=== PATIENT | female | born 1960 | race Caucasian/White ===

== ENCOUNTER → 2021-04-15 | Outpatient (CLI) | payer OTHER ==
[~2021-04-15] MED LIST: ALBU90OI INH; ALBU90OI6 INH; ATOR40TA PO; Augmentin 875-1 EACH PO; ERYT.5TO BOTHEYES; FLOVENT HFA12 GM INH; FLUT.05NI; Flonase 0.05% N16 GM; GUAI120S1 PO; HYDCHL12.5 PO; HYDCHL25 PO; IBUP200 PO; LEVSOD100 PO; LEVSOD112 PO; OMEP20ER PO; OXYACE5T PO; PARO20 PO; RANI150 PO; Sudogest30 MG PO; VOLTAREN ARTHRI20 GM TOP
[2021-04-15 13:02] LABS: BASOPHILS ABSOLUTE AUTO 0.05 K/mm3 (0.00-0.23); BASOPHILS PERCENT AUTO 1 % (0-2); EOSINOPHILS ABSOLUTE AUTO 0.12 K/mm3 (0.00-0.68); EOSINOPHILS PERCENT AUTO 2 % (0-6); Hematocrit 42.4 % (33.0-51.0); Hemoglobin 14.4 g/dL (11.5-16.0); IMMATURE GRAN ABSOLUTE AUTO 0.02 K/mm3 (0.00-0.10); IMMATURE GRAN PERCENT AUTO 0 % (0-1); LYMPHOCYTES ABSOLUTE AUTO 2.24 K/mm3 (0.84-5.20); LYMPHOCYTES PERCENT AUTO 32 % (21-46); MONOCYTES ABSOLUTE AUTO 0.75 K/mm3 (0.16-1.47); MONOCYTES PERCENT AUTO 11 % (4-13); Mean Corpuscular HGB 33.8 pg (26.0-34.0); Mean Corpuscular Volume 100 fL (80-100); NEUTROPHILS ABSOLUTE AUTO 3.76 K/mm3 (1.96-9.15); NEUTROPHILS PERCENT AUTO 54 % (41-73); RDW Coefficient Variation 13.2 % (11.7-14.2); RDW Standard Deviation 48.4 fL (35.1-46.3); Red Blood Cell Count 4.26 M/mm3 (3.80-5.20); White Blood Cell Count 6.94 K/mm3 (4.00-11.30)
[2021-04-15 13:17] LABS: Alanine Aminotransfer (ALT/SGP 38 U/L (12-78); Albumin/Globulin Ratio 1.2 (0.8-1.8); Alk Phos 78 U/L (50-136); Anion Gap 6 mmol/L (6-16); Aspartate Aminotrans (AST/SGOT 28 U/L (12-37); Bilirubin, Total 0.6 mg/dL (0.1-1.0); Blood Urea Nitrogen 12 mg/dL (8-24); Bun/Creatinine Ratio 15.6 (12.0-20.0); CO2, Blood 28 mmol/L (21-32); Calcium, Blood 9.8 mg/dL (8.5-10.1); Chloride, Blood 106 mmol/L (98-108); Creatinine, Blood 0.77 mg/dL (0.40-1.00); Globulin, Blood 3.2 g/dL (2.2-4.0); Glomerular Filtration Rate >60 (60-); Glucose, Blood 110 mg/dL (70-99); Potassium, Blood 3.8 mmol/L (3.5-5.5); Sodium, Blood 140 mmol/L (136-145); Total Protein, Blood 7.2 g/dL (6.4-8.2)
[2021-04-15 13:54] LABS: Platelet Count 278 K/mm3 (150-400)
[2021-04-15 13:55] LABS: Mean Platelet Volume 10.2 fL (9.1-12.4)
== END | disposition home or self-care (01) ==
LOC: LAB SHORT 07:33
PROVIDERS: Physician Assistant
DX: E78.5 Hyperlipidemia, unspecified (principal); I10 Essential (primary) hypertension; R73.03 Prediabetes
CPT/HCPCS: 36415; 80053; 83036; 85025

== ENCOUNTER → 2021-06-03 | Outpatient (CLI) | payer OTHER ==
[2021-06-03 10:39] LABS: BASOPHILS ABSOLUTE AUTO 0.05 K/mm3 (0.00-0.23); BASOPHILS PERCENT AUTO 1 % (0-2); EOSINOPHILS ABSOLUTE AUTO 0.08 K/mm3 (0.00-0.68); EOSINOPHILS PERCENT AUTO 1 % (0-6); Hematocrit 40.3 % (33.0-51.0); Hemoglobin 14.2 g/dL (11.5-16.0); IMMATURE GRAN ABSOLUTE AUTO 0.03 K/mm3 (0.00-0.10); IMMATURE GRAN PERCENT AUTO 0 % (0-1); LYMPHOCYTES ABSOLUTE AUTO 2.01 K/mm3 (0.84-5.20); LYMPHOCYTES PERCENT AUTO 25 % (21-46); MONOCYTES ABSOLUTE AUTO 0.69 K/mm3 (0.16-1.47); MONOCYTES PERCENT AUTO 9 % (4-13); Mean Corpuscular HGB 34.7 pg (26.0-34.0); Mean Corpuscular HGB Conc 35.2 g/dL (31.5-36.5); Mean Corpuscular Volume 99 fL (80-100); Mean Platelet Volume 9.2 fL (9.1-12.4); NEUTROPHILS ABSOLUTE AUTO 5.07 K/mm3 (1.96-9.15); NEUTROPHILS PERCENT AUTO 64 % (41-73); Platelet Count 272 K/mm3 (150-400); RDW Coefficient Variation 12.7 % (11.7-14.2); RDW Standard Deviation 45.5 fL (35.1-46.3); Red Blood Cell Count 4.09 M/mm3 (3.80-5.20); White Blood Cell Count 7.93 K/mm3 (4.00-11.30)
== END ==
LOC: LAB 10:32 → LAB SHORT 10:32
PROVIDERS: Physician Assistant
DX: M79.671 Pain in right foot (principal)
CPT/HCPCS: 84550; 85025; 85379; 85651

== ENCOUNTER 2022-12-01 10:02 | Day surgery (SDC) | payer OTHER ==
[2022-12-01 13:38] VITALS: BP 105/68
== END 2022-12-01 14:51 | disposition home or self-care (01) ==
LOC: ATC 10:02
DX: R13.10 Dysphagia, unspecified (principal); M19.91 Primary osteoarthritis, unspecified site; E03.8 Other specified hypothyroidism; E06.3 Autoimmune thyroiditis; R73.03 Prediabetes; K21.9 Gastro-esophageal reflux disease without esophagitis; G89.29 Other chronic pain; I10 Essential (primary) hypertension; E78.2 Mixed hyperlipidemia; J45.909 Unspecified asthma, uncomplicated; Z72.0 Tobacco use
CPT/HCPCS: J7030

== ENCOUNTER 2022-12-03 10:34 | Day surgery (SDC) | payer OTHER ==
[~2022-12-03] VITALS: Ht 175.3 cm; Wt 76.0 kg
[2022-12-03 10:59] VITALS: BP 104/77
--- NOTE | 2022-12-03 12:09 | NUR ---
12/03/22 [address] MAC WITH DR. DOYLE IN OR 2; SEE ANESTHESIA RECORDS.
--- NOTE | 2022-12-03 13:04 | NUR ---
ADDITIONAL LIDOCAINE 4% NEBULIZER PER DR DOYLE. AWAITING FOR POTASSIUM LEVEL RESULTS PRIOR TO EGD/PEG TUBE PLACEMENT.
[2022-12-03 14:00] VITALS: BP 114/68
[2022-12-03 14:15] VITALS: BP 114/73
[2022-12-03 14:30] VITALS: BP 109/68
--- NOTE | 2022-12-03 14:52 | NUR ---
Patient up to Ambulate independently. Gait steady. Discharge instructions reviewed with patient. Patient verbalizes understanding. Copy given to patient to take home, [facility]. Discharged via wheelchair to private car for ride home. Patient States Post-Procedure ride home has been arranged. DR CAMPBELL REPORTED THAT PT MAY HAVE WATER BY MOUTH.
== END 2022-12-03 14:52 | disposition home or self-care (01) ==
LOC: ORSCMMR 10:34 → ORD 11:45 → ORSCMMR 14:52
PROVIDERS: Surgery
PROC: 0DH68UZ Insertion of Feeding Device into Stomach, Via Natural or Artificial Opening Endoscopic (ICD-10-PCS; principal; 2022-12-03 11:45)
DX: C06.0 Malignant neoplasm of cheek mucosa (principal); I10 Essential (primary) hypertension; J45.909 Unspecified asthma, uncomplicated; Z87.891 Personal history of nicotine dependence; K21.9 Gastro-esophageal reflux disease without esophagitis; E03.9 Hypothyroidism, unspecified; Z79.899 Other long term (current) drug therapy
CPT/HCPCS: 84132; 93005; 93010; J0690; J2001; J2405; J2704; J7120

== ENCOUNTER 2023-03-04 08:59 | Emergency (ER) | payer OTHER ==
[~2023-03-04] VITALS: Ht 177.8 cm; Wt 77.1 kg
[2023-03-04 09:42] LABS: BASOPHILS ABSOLUTE AUTO 0.01 K/mm3 (0.00-0.23); BASOPHILS PERCENT AUTO 0 % (0-2); EOSINOPHILS ABSOLUTE AUTO 0.24 K/mm3 (0.00-0.68); EOSINOPHILS PERCENT AUTO 5 % (0-6); Hematocrit 36.5 % (33.0-51.0); Hemoglobin 12.4 g/dL (11.5-16.0); IMMATURE GRAN ABSOLUTE AUTO 0.01 K/mm3 (0.00-0.10); IMMATURE GRAN PERCENT AUTO 0 % (0-1); LYMPHOCYTES ABSOLUTE AUTO 0.41 K/mm3 (0.84-5.20); LYMPHOCYTES PERCENT AUTO 9 % (21-46); MONOCYTES ABSOLUTE AUTO 0.19 K/mm3 (0.16-1.47); MONOCYTES PERCENT AUTO 4 % (4-13); Mean Corpuscular HGB 33.5 pg (26.0-34.0); Mean Corpuscular Volume 99 fL (80-100); Mean Platelet Volume 10.4 fL (9.1-12.4); NEUTROPHILS ABSOLUTE AUTO 3.75 K/mm3 (1.96-9.15); NEUTROPHILS PERCENT AUTO 81 % (41-73); Platelet Count 153 K/mm3 (150-400); RDW Coefficient Variation 12.1 % (11.7-14.2); RDW Standard Deviation 44.4 fL (35.1-46.3); White Blood Cell Count 4.61 K/mm3 (4.00-11.30)
[2023-03-04 09:58] LABS: Albumin, Blood 3.4 g/dL (3.4-5.0); Albumin/Globulin Ratio 0.9 (0.8-1.8); Bilirubin, Total 0.3 mg/dL (0.1-1.0); Bun/Creatinine Ratio 16.2 (12.0-20.0); Calcium, Blood 8.9 mg/dL (8.5-10.1); Creatinine, Blood 0.74 mg/dL (0.40-1.00); Globulin, Blood 3.9 g/dL (2.2-4.0); Potassium, Blood 3.6 mmol/L (3.5-5.5); Total Protein, Blood 7.3 g/dL (6.4-8.2)
[2023-03-04 10:00] LABS: BAND PERCENT MAN 2 % (0-8); BASOPHILS PERCENT MAN 0 % (0-2); EOSINOPHILS ABSOLUTE MAN 0.23 K/mm3 (0.00-0.68); EOSINOPHILS PERCENT MAN 5 % (0-6); LYMPHOCYTES ABSOLUTE MAN 0.23 K/mm3 (0.84-5.20); LYMPHOCYTES PERCENT MAN 5 % (21-46); MONOCYTES ABSOLUTE MAN 0.13 K/mm3 (0.16-1.47); MONOCYTES PERCENT MAN 3 % (4-13); NEUTROPHILS ABSOLUTE MAN 4.01 K/mm3 (1.96-9.15); SEG NEUTROPHILS PERCENT MAN 85 % (41-73); TOTAL CELLS COUNTED 100
[2023-03-04 10:31] LABS: Influenza A, PCR NEGATIVE (NEGATIVE); Influenza B, PCR NEGATIVE (NEGATIVE); Resp Syncytial Virus, PCR NEGATIVE (NEGATIVE); SARS-Cov-2 (COVID-19) PCR, MMC NEGATIVE (NEGATIVE)
[2023-03-04] MEDS ORDERED: PRED20 PO (10:57)
[2023-03-04] MEDS ORDERED: FAMO20 PO (10:57)
[2023-03-04 11:10] VITALS: BP 124/61
== END 2023-03-04 11:16 | disposition home or self-care (01) ==
LOC: ER 08:59
PROVIDERS: Emergency Medicine
DX: R51.9 Headache, unspecified (principal); R21 Rash and other nonspecific skin eruption; Z79.899 Other long term (current) drug therapy; J44.9 Chronic obstructive pulmonary disease, unspecified; K21.9 Gastro-esophageal reflux disease without esophagitis; E78.5 Hyperlipidemia, unspecified; Z87.891 Personal history of nicotine dependence; Z20.822 Contact with and (suspected) exposure to COVID-19
CPT/HCPCS: 0241U; 70450; 80053; 85025; 96374; 96375; 99284-25; A9270; J1200; J2405; J2930

== ENCOUNTER 2025-03-21 10:50 | Day surgery (SDC) | payer MEDICARE, OTHER ==
[~2025-03-21] VITALS: Ht 175.3 cm; Wt 103.6 kg
[~2025-03-21 10:50] MED LIST changes: +Balanced Salt Epinephrine Irrigation Solution 500 mL IR SCH; +FAMO20 PO; +Moxifloxacin HCL 0.5 MG/0.1 ML 0.4MLSYR LEFTEYE SCH; +Ondansetron 4 MG SoluTab MM PRN; +PHENYLEPHRINE\\TROPICAMIDE\\TETRACAINE OPHTHALMIC DILATING SOLN LEFTEYE PRN; +PRED20 PO; +Povidone-Iodine 450 DROP/30 ML Solution LEFTEYE SCH; +Povidone-Iodine 450 DROP/30 ML Solution ONE; +Tetracaine HCl/Pf 0.5% Opth Soln 4 ml ONE; +Triamcinolone Inj Susp 40 MG / ML 1ML Vial INJ SCH; +Triamcinolone Inj Susp 40 MG / ML 1ML Vial ONE
[2025-03-21] MEDS ORDERED: ESOM20 PO (11:23)
[2025-03-21] MEDS ORDERED: CENTRUM SILVER1 EAC2 PO (11:24)
[2025-03-21] MEDS ORDERED: METF500 PO (11:24)
[2025-03-21] MEDS ORDERED: POTASSIUM99 M3 PO (11:25)
[2025-03-21] MEDS ORDERED: ACET500 PO (11:26)
[2025-03-21] MEDS ORDERED: CALCIUM 600 MG1 EA18 PO (11:26)
[2025-03-21] MEDS ORDERED: IBUP200 PO (11:27)
[2025-03-21] MEDS ORDERED: QUNOL MEGA COQ100 MG PO (11:27)
--- NOTE | 2025-03-21 11:56 | NUR ---
03/21/25 1156 Jimena Conde PT. STILL FEELING ANXIOUS, STATES FIRST MEDICATION HASN'T DONE ANYTHING. NOTIFIED DR. POLLARD & ORDER GIVEN TO GIVEN 5MG VALIUM FOR ANXIETY.
--- NOTE | 2025-03-21 12:10 | NUR ---
03/21/25 1210 Christina Alegria VITALS @1201 HR 81 B/P 130/73 O2 SAT 96%
[2025-03-21] MEDS ORDERED: Erythromycin 0.5% Opth Oint 1 gm ONE (12:14)
[2025-03-21 12:37] VITALS: BP 141/86
== END 2025-03-21 12:45 | disposition home or self-care (01) ==
LOC: ORSCSDS 10:50
PROVIDERS: Ophthalmology
PROC: 08RK3JZ Replacement of Left Lens with Synthetic Substitute, Percutaneous Approach (ICD-10-PCS; principal; 2025-03-21 12:30)
DX: H25.812 Combined forms of age-related cataract, left eye (principal); F41.9 Anxiety disorder, unspecified; J45.909 Unspecified asthma, uncomplicated; F32.A Depression, unspecified; E07.9 Disorder of thyroid, unspecified; K21.9 Gastro-esophageal reflux disease without esophagitis; E78.5 Hyperlipidemia, unspecified; I10 Essential (primary) hypertension; Z79.84 Long term (current) use of oral hypoglycemic drugs; Z79.899 Other long term (current) drug therapy
CPT/HCPCS: A9270; J3301; V2632